=== PATIENT | female | born 1990 | race Two or more races ===

== ENCOUNTER 2017-01-29 16:14 | Emergency (ER) | payer MEDICAID ==
[~2017-01-29] VITALS: Ht 160 cm; Wt 54.4 kg
[2017-01-29] MEDS ORDERED: Morphine Sulfate 4mg/ml Inj IM ONE (17:30)
[2017-01-29 17:38] VITALS: BP 110/74
[2017-01-29 18:19] VITALS: BP 110/74
--- NOTE | 2017-01-29 22:29 | Emergency Room Report ---
History of Present Illness General Chief Complaint: Gastrointestinal Bleed Source: EMS Present Illness HPI 26-year-old female presents to ED with rectal bleeding. Patient states she had hemorrhoid surgery 2 days ago at [facility]. Patient was told she needed bed rest but was doing work today. States the bleeding started after running around doing errands. Pain is throbbing, 8/10, nonradiating. Denies abdominal pain nausea or vomiting. No other aggravating relieving factors. Denies any other associated symptoms Allergies: Coded Allergies: No Known Allergies (Unverified , 01/29/17) Patient History Past Medical History: none Past Surgical History: other - hemorroidhectomy 01/26/17 Pertinent Family History: none Social History: Denies: smoking, alcohol use, drug use Now: No Immunizations: UTD Reviewed Nursing Documentation: PMH: Agreed, PSxH: Agreed Nursing Documentation-PMH Past Medical History: No Stated History Review of Systems All Other Systems: negative except mentioned in HPI Physical Exam Vital Signs Date Time Temp Pulse Resp B/P (MAP) Pulse Ox O2 Delivery O2 Flow Rate FiO2 01/29/17 16:06 98.2 80 18 110/74 98 Room Air Sp02 EP Interpretation: reviewed, normal General Appearance: no apparent distress, alert, GCS 15, non-toxic Head: normocephalic Eyes: bilateral eye normal inspection, bilateral eye PERRL ENT: normal ENT inspection Neck: normal inspection Respiratory: chest non-tender, lungs clear, normal breath sounds, speaking full sentences Cardiovascular #1: regular rate, rhythm, no edema Gastrointestinal: normal bowel sounds, non tender, soft, non-distended, no guarding, no rebound Rectal: other - no active bleeding. no hemorrhoids. manager portable present Genitourinary: no CVA tenderness Musculoskeletal: normal inspection Neurologic: alert, oriented x3, responsive, motor strength/tone normal, sensory intact, speech normal Psychiatric: normal inspection Skin: normal inspection Lymphatic: normal inspection Medical Decision Making Diagnostic Impression: Primary Impression: S/P hemorrhoidectomy Additional Impression: Postoperative bleeding from incision ER Course Hospital Course 26-year-old female presents to ED with rectal bleeding. Status post hemorrhoid surgery Clinical course Patient placed on stretcher. manager portable present. Rectal exam shows no active bleeding. No evidence of hemorrhoid Dried blood is cleaned. Patient given new dressings. Reassurance given. Recommend continued best rest and followup with surgery as outpatient Diagnosis - s/p hemorrhoidectomy, postoperative bleeding Stable and discharged to home. continue bed rest. Followup with PMD. Return to ED if bleeding recurs Last Vital Signs Date Time Temp Pulse Resp B/P (MAP) Pulse Ox O2 Delivery O2 Flow Rate FiO2 01/29/17 18:19 98.2 87 18 110/74 98 Room Air Status: improved Disposition: HOME, SELF-CARE Condition: Stable Referrals: [facility],REFERRING (PCP) Patient Instructions: Hemorrhoids, [id number] TAMELA RAZA M.D. Jan 29, 2017 22:29
== END 2017-01-29 18:20 | disposition home or self-care (01) ==
LOC: EDBD 16:14 → EMR 16:50
DX: L76.22 Postprocedural hemorrhage of skin and subcutaneous tissue following other procedure (principal); Y83.8 Other surgical procedures as the cause of abnormal reaction of the patient, or of later complication, without mention of misadventure at the time of the procedure; Y92.9 Unspecified place or not applicable
CPT/HCPCS: 96372; 99283; J2270

== ENCOUNTER → 2017-06-18 | Emergency (ER) | payer MEDICAID ==
[~2017-06-18] VITALS: Ht 147.3 cm; Wt 78.9 kg
[~2017-06-18] MED LIST: Acetaminophen 500mg (ES) tab ORAL ONE; NKM; TYLENOL EXTRA500 MG ORAL
--- NOTE | 2017-06-18 14:46 | Emergency Room Report ---
History of Present Illness General Chief Complaint: Abdominal Pain Source: Patient Present Illness HPI 26 yo female patient presents to ER complaining of vaginal bleeding and clot passage. reports passage of a "clot" states that she brought in the clot to ER. patient reports last menstrual period was on April 30, states that she received Depo shot on May 01. Patient reports she has been on the Depa shot shot since she was 22 years old. patient reports she is sexually active with 2 partners, does not use protection. Patient reports no history of STI, states she is tested month and is asymptomatic, no vaginal discharge or other acute symptoms. Denies sharp abdominal pain, denies radiation of pain. Patient reports that she did not know if she was . Patient reports history of 4 pregnancies in the past. Denies any previous complications with pregnancies, denies history of miscarriage. Denies fever, SOB, calf pain, [place], vision changes. patient reports a history of chronic back pain. patient reports she has received Rhogam shots in the past during each . 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 Allergies: Coded Allergies: No Known Allergies (Unverified , 01/29/17) Patient History Last Menstrual Period: unknown Reviewed Nursing Documentation: PMH: Agreed; PSxH: Agreed Nursing Documentation-PMH Past Medical History: No History, Except For Hx Asthma: Yes Review of Systems All Other Systems: negative except mentioned in HPI Physical Exam Vital Signs Date Time Temp Pulse Resp B/P (MAP) Pulse Ox O2 Delivery O2 Flow Rate FiO2 06/18/17 14:39 98.1 91 16 112/74 96 Room Air 98.1 Sp02 EP Interpretation: reviewed, normal General Appearance: well appearing, no apparent distress, alert, GCS 15, non- toxic Head: normocephalic, atraumatic Eyes: bilateral eye normal inspection, bilateral eye PERRL ENT: hearing grossly normal, normal pharynx, no angioedema, normal voice, uvula midline, moist mucus membranes Neck: full range of motion Respiratory: lungs clear, normal breath sounds, no rhonchi, no respiratory distress, no accessory muscle use, no wheezing, speaking full sentences Cardiovascular #1: regular rate, rhythm, no edema Gastrointestinal: non tender, soft, no mass, non-distended, no guarding, no rebound Genitourinary: no CVA tenderness, deferred Musculoskeletal: back normal, digits/nails normal, gait/station normal, normal range of motion, non-tender, no calf tenderness Neurologic: alert, oriented x3, responsive, motor strength/tone normal, sensory intact Psychiatric: mood/affect normal Skin: no rash Medical Decision Making PA Attestation Dr. Boateng is my supervising Physician whom patient management has been discussed with. Diagnostic Impression: Primary Impression: Abnormal uterine bleeding Additional Impression: Abnormal finding on ultrasound ER Course Pt presents to ED c/o vaginal bleeding/spotting. DDX considered but are not limited to threatened , incomplete , complete , ectopic, UTI, septic , hemorrhagic cyst. VITAL SIGNS are WNL, patient is afebrile Ordered CBC, CMP, Type and Screen, UA, UCG, bHCG, IV NS and pelvic US. Pain medication. ER COURSE: Patient resting comfortably, in no acute distress, nontoxic appearing, watching TV on her phone. Pelvic exam deferred. CBC and CMP unremarkable, no elevation in WBCs, no amenia. UA results unremarkable negative nitrites, 0-2 WBC, asx patient, low suspicion for UTI. Urine negative BetaHCG <1, Informed patient unlikely. Discussed results with patient. US results via [facility]: Uterus and endometrium are within normal limits. Possible trace echogenic debris in the lower uterine segment. No sonographic findings to suggest ovarian torsion. No adnexal masses or pelvic free fluid. Patient needs followup with OBGYN for further diagnosis and possible biopsy. Rh status negative Blood type A negative Discuss with patient need for Rhogam shots during and complications of not having. F/u with OBGYN in 2-3 days. Contact primary care provider for referral to OBGYN. Contact insurance to discover name and establish primary care provider. ER precautions given. DISCHARGE: -Rx provided for Tylenol for pain At this time pt. is stable for d/c to home. At this time patient is resting comfortably, in no acute distress, nontoxic appearing, smiling and talking without difficulty. Will provide printed patient care instructions, and any necessary prescriptions. Patient instructed to follow with OBGYN for further treatment and referral as needed. Care plan and follow up instructions have been discussed with the patient prior to discharge. Patient reports understanding and agreement to treatment plan. Patient questions asked and answered. ER precautions given, patient instructed to return to ER immediately for any new or worsening of symptoms. - Please note that this Emergency Department Report was dictated using [employer] assembler technology software, occasionally this can lead to erroneous entry secondary to interpretation by the dictation equipment. Labs Test 06/18/17 15:40 White Blood Count 7.9 K/UL (4.8-10.8) Red Blood Count 5.00 M/UL (4.20-5.40) Hemoglobin 14.5 G/DL (12.0-16.0) Hematocrit 42.9 % (37.0-47.0) Mean Corpuscular Volume 86 FL (80-99) Mean Corpuscular Hemoglobin 28.9 PG (27.0-31.0) Mean Corpuscular Hemoglobin Concent 33.7 G/DL (32.0-36.0) Red Cell Distribution Width 11.2 % (11.6-14.8) Platelet Count 278 K/UL (150-450) Mean Platelet Volume 6.0 FL (6.5-10.1) Neutrophils (%) (Auto) 58.8 % (45.0-75.0) Lymphocytes (%) (Auto) 32.7 % (20.0-45.0) Monocytes (%) (Auto) 5.9 % (1.0-10.0) Eosinophils (%) (Auto) 1.7 % (0.0-3.0) Basophils (%) (Auto) 0.9 % (0.0-2.0) Urine Color Yellow Urine Appearance Clear Urine pH 5 (4.5-8.0) Urine Specific [place] 1.020 (1.005-1.035) Urine Protein Negative (NEGATIVE) Urine Glucose (UA) Negative (NEGATIVE) Urine Ketones Negative (NEGATIVE) Urine Occult Blood 2+ (NEGATIVE) Urine Nitrite Negative (NEGATIVE) Urine Bilirubin Negative (NEGATIVE) Urine Urobilinogen Normal MG/DL (0.0-1.0) Urine Leukocyte Esterase Negative (NEGATIVE) Urine RBC 0-2 /HPF (0 - 2) Urine WBC 0-2 /HPF (0 - 2) Urine Squamous Epithelial Cells Few /LPF (NONE/OCC) Urine Bacteria None /HPF (NONE) Urine HCG, Qualitative Negative (NEGATIVE) Sodium Level 142 MMOL/L (136-145) Potassium Level 3.7 MMOL/L (3.5-5.1) Chloride Level 106 MMOL/L (98-107) Carbon Dioxide Level 24 MMOL/L (21-32) Anion Gap 12 mmol/L (5-15) Blood Urea Nitrogen 10 mg/dL (7-18) Creatinine 0.7 MG/DL (0.55-1.30) Estimat Glomerular Filtration Rate > 60 mL/min (>60) Glucose Level 102 MG/DL (74-106) Calcium Level 9.2 MG/DL (8.5-10.1) Total Bilirubin 0.2 MG/DL (0.2-1.0) Aspartate Amino Transf (AST/SGOT) 14 U/L (15-37) Alanine Aminotransferase (ALT/SGPT) 27 U/L (12-78) Alkaline Phosphatase 80 U/L (46-116) Total Protein 7.8 G/DL (6.4-8.2) Albumin 3.9 G/DL (3.4-5.0) Globulin 3.9 g/dL Albumin/Globulin Ratio 1.0 (1.0-2.7) Lipase 131 U/L (73-393) Human Chorionic Gonadotropin, Quant < 1 mIU/mL (1-6) CT/MRI/US Diagnostic Results CT/MRI/US Diagnostic Results : Imaging Test Ordered: Pelvic US Impression Uterus and endometrium are within normal limits. Possible trace echogenic debris in the lower uterine segment. No sonographic findings to suggest ovarian torsion. No adnexal masses or pelvic free fluid. Last Vital Signs Date Time Temp Pulse Resp B/P (MAP) Pulse Ox O2 Delivery O2 Flow Rate FiO2 06/18/17 14:39 98.1 91 16 112/74 96 Room Air 98.1 Disposition: HOME, SELF-CARE Condition: Stable Scripts Acetaminophen* (TYLENOL EXTRA STRENGTH*) 500 Mg Tablet 500 MG ORAL Q8H PRN for Prn Headache/Temp > 101, #30 TAB 0 Refills Prov: Matt Kwan 06/18/17 Patient Instructions: Abnormal Uterine Bleeding, [id number] Additional Instructions: Followup with OBGYN in 1-2 days, need serial Beta HCG and US Take medications as directed. Take Tylenol for pain. Patient questions asked and answered. ER precautions given, patient instructed to return to ER immediately for any new or worsening of symptoms including but not limited to chest pain, SOB, intractable vomiting, profuse vaginal bleeding, abdominal pain. Blood type A negative Rh antibody negative Matt Kwan June 18, 2017 14:46
[2017-06-18 15:59] VITALS: BP 112/74
[2017-06-18 16:03] LABS: APPEARANCE,URINE CLEAR; BILIRUBIN, URINE NEGATIVE (NEGATIVE); GLUCOSE, URINE (UA) NEGATIVE (NEGATIVE); KETONES,URINE NEGATIVE (NEGATIVE); LEUKOCYTE ESTERASE ,URINE NEGATIVE (NEGATIVE); NITRITE,URINE NEGATIVE (NEGATIVE); PH,URINE 5 (4.5-8.0); PROTEIN,URINE NEGATIVE (NEGATIVE); UROBILINOGEN,URINE NORMAL MG/DL (0.0-1.0)
[2017-06-18 16:06] LABS: BASOPHILS % (AUTO) 0.9 % (0.0-2.0); EOSINOPHILS % (AUTO) 1.7 % (0.0-3.0); HEMATOCRIT 42.9 % (37.0-47.0); HEMOGLOBIN 14.5 G/DL (12.0-16.0); LYMPHOCYTES % (AUTO) 32.7 % (20.0-45.0); MEAN CORPUSCULAR VOLUME 86 FL (80-99); MONOCYTES % (AUTO) 5.9 % (1.0-10.0); NEUTROPHILS % (AUTO) 58.8 % (45.0-75.0); PLATELET COUNT 278 K/UL (150-450); RED CELL DISTRIBUTION WIDTH 11.2 % (11.6-14.8); WHITE BLOOD COUNT 7.9 K/UL (4.8-10.8)
[2017-06-18 16:07] LABS: COLOR,URINE YELLOW
[2017-06-18 16:17] LABS: ANION GAP 12 mmol/L (5-15); BLOOD UREA NITROGEN 10 mg/dL (7-18); CALCIUM 9.2 MG/DL (8.5-10.1); CARBON DIOXIDE 24 MMOL/L (21-32); CHLORIDE 106 MMOL/L (98-107); CREATININE 0.7 MG/DL (0.55-1.30); POTASSIUM 3.7 MMOL/L (3.5-5.1); SODIUM 142 MMOL/L (136-145)
[2017-06-18 16:21] LABS: ALANINE AMINOTRANSFERASE 27 U/L (12-78); ALBUMIN 3.9 G/DL (3.4-5.0); ALKALINE PHOSPHATASE 80 U/L (46-116); ASPARTATE AMINO TRANSFERASE 14 U/L (15-37); BILIRUBIN,TOTAL 0.2 MG/DL (0.2-1.0)
[2017-06-18 18:46] VITALS: BP 106/72
--- NOTE | 2017-06-19 11:37 | Diagnostic Imaging Report ---
Indication:Lower abdominal and pelvic pain Technique: Grayscale and duplex Doppler imaging of the pelvis performed utilizing a transabdominal scan and endovaginal scan. Comparison: None Findings: The central endometrial echo complex is normal in appearance measuring about 7 mm in thickness. There is trace endometrial fluid in the lower uterine segment. Uterus is retroverted. The ovaries show dopplerable blood flow and appear normal. Uterus measures 7 x 5 x 4 cm. Right ovary 4 x 4.3 x 2 cm. Left ovary 3.2 x 2.9 x 2.1 cm. IMPRESSION: No acute findings [facility] has communicated the preliminary results to the Emergency Department. Their findings are largely concordant with this report.
== END | disposition home or self-care (01) ==
LOC: EMR 14:56
DX: N93.9 Abnormal uterine and vaginal bleeding, unspecified (principal); R93.8 Abnormal findings on diagnostic imaging of other specified body structures; N85.4 Malposition of uterus; J45.909 Unspecified asthma, uncomplicated
CPT/HCPCS: 36415; 76830; 76856; 80053; 81003; 81025; 83690; 84702; 85025; 86850; 86900; 86901; 96360; 96374; 99284